=== PATIENT | male | born 2000 | race Caucasian/White ===

== ENCOUNTER 2022-03-04 16:06 | Emergency (ER) | payer OTHER, SELFPAY ==
[2022-03-04 16:35] VITALS: BP 127/67; PULSE 75; RESP 16; TEMP 36.7; O2SAT 100; BMI 21.2
--- NOTE | 2022-03-04 16:36 | EXP.UTC ---
Discharge Plan Disposition Patient Disposition: Home, Self-Care Condition: Good Referrals Follow up/Referrals: Jacky Ladd [Primary Care Provider] - See instructions Activity Restrictions/Add. Instructions Additional Instructions/Restrictions: Follow up with your primary care physicain. GO TO THE ER FOR ANY WORSENING SYMPTOMS OR CONCERNS Clinical Impressions Clinical Impression: Acute pain of left ear Instructions Patient Instructions: DI for Ear Pain-Adult Discharge ED Provider: Abbe Rico [facility] General Stated complaint: possible bug in ear Time Seen by Provider: 03/04/22 16:36 History of Present Illness Provider Complaint: He states that 2 days ago he felt an insect go in his left ear. He is unsure what kind of insect it was or how big it was. He states that since then he has tried hard to get it out by using q-tips and irrigation. He states that last night he began having ear pain. He denies any ear discharge, tinnitis, dizziness or any other symptoms. Related Data Allergies Allergy/AdvReac Type Severity Reaction Status Date / Time No Known Allergies Allergy Verified 03/04/22 16:39 [facility] Social History Smoking Status: Never smoker alcohol intake: never current occupational status: employed ROS Obtained: Yes All systems reviewed & no additional complaints except as documented Constitutional Constitutional: Reports system reviewed and no additional complaints, except as documented Eyes Eyes: Reports system reviewed and no additional complaints, except as documented Cardiovascular Cardiovascular: Reports system reviewed and no additional complaints, except as documented Respiratory Respiratory: Reports system reviewed and no additional complaints, except as documented Gastrointestinal Gastrointestingal: Reports system reviewed and no additional complaints, except as documented Musculoskeletal Musculoskeletal: Reports system reviewed and no additional complaints, except as documented Integumentary/Breasts Skin/Breast: Reports system reviewed and no additional complaints, except as documented Physical Exam General General appearance: alert and in no apparent distress Head Head exam: atraumatic, normocephalic and normal inspection Eye Eye exam: Present normal appearance, PERRL and EOMI ENT ENT exam: Present normal exam, normal oropharynx, mucous membranes moist, TM's normal bilaterally and normal external ear exam Expanded ENT Exam Comment: There was no insect or foreign body in either of his ears. The left ear canal is clear of wax and i was able to easily visualized the entire canal. Neck Neck exam: Present normal inspection, full ROM and trachea midline; Absent meningismus or lymphadenopathy Chest Chest inspection: Present normal inspection and symmetric chest wall rise; Absent tenderness Respiratory Respiratory exam: Present normal lung sounds bilaterally; Absent respiratory distress Cardiovascular Cardiovascular exam: Present regular rate and normal rhythm; Absent JVD Abdominal Exam Abdominal exam: Present soft and normal bowel sounds; Absent distention, tenderness or guarding Extremities Exam Extremities exam: Present normal inspection, full ROM and normal capillary refill; Absent calf tenderness Back Exam Back exam: Present normal inspection; Absent tenderness Neurological Exam Neurological exam: Present alert and oriented X3 Psychiatric Psychiatric exam: Present normal affect and normal mood Skin Skin exam: Present warm, dry, intact and normal color Lymphatic Lymphatic Findings: no adenopathy Medical Decision Making Medical Records Medical records reviewed: No I reviewed the patient's medical records. Pelon Inquiry Pt receiving controlled substance: No
[2022-03-04 17:00] VITALS: BP 127/67; PULSE 75; RESP 16; TEMP 36.7
== END 2022-03-04 17:01 | disposition home or self-care (01) ==
PROVIDERS: Emergency Provider Nurse Practitioner Family; PCP Pediatrics
DX: H92.02 Otalgia, left ear (principal)
CPT/HCPCS: 99212; G0463

== ENCOUNTER 2022-05-14 12:25 | Emergency (ER) | payer OTHER, SELFPAY ==
[2022-05-14 13:40] VITALS: BP 114/76; PULSE 89; RESP 18; TEMP 37.1; O2SAT 98; BMI 21.9
--- NOTE | 2022-05-14 13:59 | EXP.UTC ---
Discharge Plan Disposition Patient Disposition: Home, Self-Care Condition: Good Referrals Follow up/Referrals: Jacky Ladd [Primary Care Provider] - See instructions Activity Restrictions/Add. Instructions Additional Instructions/Restrictions: *Monitor Temp, Over the counter Motrin or Tylenol as directed/as needed Tylenol every 4 hours and Motrin every 6 hours (as long as your family doctor has told you that you can take it) for fever or pain. and straight to ER if unable to lower temp less than 101.0 after medication given *Warm salt water gargles may help to soothe the throat *Throat Lozenges? *Warm fluids like tea with honey may help to soothe the throat? *Sleep elevated *Humidifier/Vaporizer Your throat swab was sent for culture. Those results are typically sent to your primary care. Be sure to follow up in 2-3 days with your family doctor/primary care physician if no improvement so they can review those result and treat if necessary. If you don?t have a primary care doctor, I recommend you get one but in the mean time, you will have to return to a walk in clinic Follow up IMMEDIATELY for new or worsening symptoms or no Noticeable improvement over the next 48-72 hours. 911 for difficulty breathing or swallowing Clinical Impressions Clinical Impression: Sore throat (viral), Nasal congestion Stand Alone Forms Stand Alone Forms: Work/School Release Instructions Patient Instructions: Sore Throat, DI for Nasal Congestion Discharge ED Provider: Jolene Miller [facility] HPI General Stated complaint: Drainage, SHAIKH Mode of Arrival: Ambulatory Source of Information: Patient Limitations: No Limitations Time Seen by Provider: 05/14/22 13:59 Description of Symptoms (Recalled from Triage Doc. by RN): PT TO [facility] WITH NAUSEA, BODY ACHES, RUNNY NOSE AND HEADACHE SINCE LAST NIGHT HEENT Symptoms (Recalled from RN notes): Yes (HEADACHE, RUNNY NOSE) Resp Symptoms (Recalled from RN notes): No Skin Symptoms (Recalled from RN notes): No MS Symptoms (Recalled from RN notes): No Functional Status (Recalled from RN notes): WDL History of Present Illness Provider Complaint: Patient state that he started feeling bad last night States that he was having runny nose, scratchy throat, body aches, and headache States that he hasnt had a fever that he is aware of but wanted to get checked with everything going around Related Data Allergies Allergy/AdvReac Type Severity Reaction Status Date / Time No Known Allergies Allergy Verified 03/04/22 16:39 Worker's Comp Is this a Worker's Comp case?: No [facility] Social History (Updated 03/04/22 @ 16:51 by Abbe Rico APRN) Smoking Status: Never smoker alcohol intake: never current occupational status: employed Travel in the last 8 weeks: None ROS Obtained: Yes All systems reviewed & no additional complaints except as documented and Yes Systems reviewed as appropriate & no additional complaints except as documented Constitutional Constitutional: Reports system reviewed and no additional complaints, except as documented, Reports as per HPI, Reports body ache, Reports chills and Reports headache(s) ENT Ears, Nose, Mouth, and Throat: Reports system reviewed and no additional complaints, except as documented, Reports as per HPI, Reports headache(s), Reports nasal congestion, Reports nasal discharge and Reports sore throat Cardiovascular Cardiovascular: Reports system reviewed and no additional complaints, except as documented and Reports as per HPI Respiratory Respiratory: Reports system reviewed and no additional complaints, except as documented and Reports as per HPI Gastrointestinal Gastrointestingal: Reports system reviewed and no additional complaints, except as documented and as per HPI Neurologic Neurologic: Reports headache(s) Physical Exam General General appearance: alert and in no apparent distress Expanded ENT Exam Nose exam: Absent sinus tenderness Throa
[2022-05-14 14:13] LABS: UTC Influenza A Antigen Negative (Negative); UTC Influenza B Antigen Negative (Negative); UTC Strep Screen (Rapid) Negative (Negative)
[2022-05-14 14:32] VITALS: BP 119/76; PULSE 81; RESP 18; TEMP 37.1; O2SAT 99
== END 2022-05-14 14:33 | disposition home or self-care (01) ==
PROVIDERS: Emergency Provider Nurse Practitioner; PCP Pediatrics
DX: R09.89 Other specified symptoms and signs involving the circulatory and respiratory systems (principal); R51.9 Headache, unspecified
CPT/HCPCS: 87804; 87880; 99212; G0463

== ENCOUNTER 2023-06-21 08:13 | Emergency (ER) | payer OTHER, SELFPAY ==
--- NOTE | 2023-06-21 08:44 | EXP.UTC ---
Discharge Plan Disposition Patient Disposition: Left Against Medical Advice Condition: Fair Referrals Follow up/Referrals: Jacky Ladd [Primary Care Provider] - See instructions Clinical Impressions Clinical Impression: Pain in both testicles Discharge ED Provider: Jolene Miller [facility] HPI General Stated complaint: Pain in both testicles Time Seen by Provider: 06/21/23 08:45 History of Present Illness Provider Complaint: Patient states that he started having pain in both testicles that started on Sat that has come and gone States that this morning it was hurting again and feeling uncomfortable and achy like pain again so he came in Related Data Allergies Allergy/AdvReac Type Severity Reaction Status Date / Time No Known Allergies Allergy Verified 03/04/22 16:39 [facility] Disclaimer: The information contained in this section may have been updated after the patient was seen, as this information can be updated by other users. Social History (Updated 03/04/22 @ 16:51 by Abbe Rico APRN) Smoking Status: Never smoker alcohol intake: never current occupational status: employed Travel in the last 8 weeks: None ROS Obtained: Yes All systems reviewed & no additional complaints except as documented and Yes Systems reviewed as appropriate & no additional complaints except as documented Constitutional Constitutional: Reports system reviewed and no additional complaints, except as documented, Reports as per HPI, Denies body ache, Denies chills and Denies fever(s) ENT Ears, Nose, Mouth, and Throat: Reports system reviewed and no additional complaints, except as documented and Reports as per HPI Cardiovascular Cardiovascular: Reports system reviewed and no additional complaints, except as documented and Reports as per HPI Respiratory Respiratory: Reports system reviewed and no additional complaints, except as documented and Reports as per HPI Gastrointestinal Gastrointestingal: Reports system reviewed and no additional complaints, except as documented and as per HPI; Denies abdominal pain Genitourinary Male Genitourinary: Reports system reviewed and no additional complaints, except as documented, Reports as per HPI, Denies difficulty urinating, Denies hematuria, Denies scrotal swelling, Reports testicular pain, Denies urinary frequency, Denies urinary hesitancy and Denies urinary urgency Physical Exam General General appearance: alert and in no apparent distress Respiratory Respiratory exam: Present normal lung sounds bilaterally; Absent respiratory distress or wheezes Cardiovascular Cardiovascular exam: Present regular rate and normal heart sounds; Absent normal rhythm exam: Present other (Patient refused testicular exam ) Neurological Exam Neurological exam: Present alert and oriented X3 Medical Decision Making Pelon Inquiry Pt receiving controlled substance: No Pelon was queried for this patient: No Orders (Tests/Meds): ORDERS Category Date Time Status Testicular US [US Testicular] Stat Ultrasound 06/21/23 08:36 Ordered Medical Decision Narrative: Upon discussing collecting UA and doing a testicular exam patient became nervous and refused States that he wants to leave and go to his Family Doctor that is a male Patient educated on risks and seriousness associated with testicular torsion, epididymitis and std's that can cause pain in testicles and he still refuse exam said he would go to his PCP which is a male for exam and signed AMA and left
[2023-06-21 08:47] VITALS: BP 133/63; PULSE 78; RESP 18; TEMP 36.7; O2SAT 98
--- NOTE | 2023-06-21 08:55 | PC.NURSE ---
Pt came in for testicular pain. Jolene Miller APRN went into the room to do an examination and he did not want us to examine him. We explained that we had no males on staff that would be able to examine him. He decided that he wanted to be seen by his PCP that is a male. We had him sign an AMA form to leave. We expressed that he needed to be seen today. He stated that he would go straight and price PCP.
== END 2023-06-21 08:47 | disposition left against medical advice (07) ==
PROVIDERS: Emergency Provider Nurse Practitioner; PCP Pediatrics
DX: N50.811 Right testicular pain (principal); N50.812 Left testicular pain
CPT/HCPCS: 99212; 99213; G0463

== ENCOUNTER 2023-06-21 21:23 | Emergency (ER) | payer OTHER, SELFPAY ==
[2023-06-21 21:25] VITALS: BP 168/89; PULSE 78; RESP 17; TEMP 36.5; O2SAT 100; BMI 20.3
--- NOTE | 2023-06-21 21:45 | HMH.EDGENADL ---
Discharge Plan Disposition Patient Disposition: Home, Self-Care Chief Complaint: Back Pain/Injury Prescriptions Prescriptions: No Action No Known Home Medications Referrals Follow up/Referrals: Jacky Ladd [Primary Care Provider] - See instructions Activity Restrictions/Add. Instructions Additional Instructions/Restrictions: Call your family doctor to establish care for this visit to the emergency department and schedule follow-up within 48 hours to ensure improvement. If you have any worsening of your condition or any other concerning signs or symptoms, return to the emergency department or your primary care doctor for further evaluation. Take full dose of doxycycline to prevent worsening of symptoms and treat possible STD. Clinical Impressions Clinical Impression: Acute epididymitis Instructions Patient Instructions: DI for Low Back Pain Discharge ED Provider: Manan Clemens General Adult HPI General Chief complaint: Back Pain/Injury Stated complaint: back pain Time Seen by Provider: 06/21/23 21:27 Mode of Arrival: Ambulatory Source of Information: Patient and Relative Limitations: No Limitations Description of Symptoms (Recalled from ER Triage Doc. by RN): Patient reports he was seen for testicle pain at [facility] earlier today, an ultrasound was performed and they reported to him that he may have an infection and started him on Diclofenac and Doxycycline. Patient reports that he began having sharp lower back pain at approximately 7pm rated 9/10 on the numeric pain scale. Patient is concerned that it may be related to his testicular pain which is less but still there. History of Present Illness HPI narrative: 22-year-old male no relevant medical history presenting with testicular and back pain. Patient was seen today in the urgent care, declined physical exam, so went to outside hospital. At outside hospital, [facility], received ultrasound and urinalysis. They stated that I had an infection, and gave him 2 medications. Medications at bedside are diclofenac and doxycycline. He denies getting intramuscular injection or shot. Because he started having lower abdominal pain and bilateral flank pain, came to the emergency department again for further evaluation. Denies fevers or chills, testicular swelling, discharge, history of STDs, or any other concerns. Related Data Home Medications Medication Instructions Recorded Confirmed No Known Home Medications 06/21/23 06/21/23 Allergies Allergy/AdvReac Type Severity Reaction Status Date / Time No Known Allergies Allergy Verified 03/04/22 16:39 [facility] Disclaimer: The information contained in this section may have been updated after the patient was seen, as this information can be updated by other users. Social History (Updated 03/04/22 @ 16:51 by Abbe Rico APRN) Smoking Status: Current some day smoker alcohol intake: never current occupational status: employed Travel in the last 8 weeks: None ROS Obtained: Yes All systems reviewed & no additional complaints except as documented Physical Exam General General appearance: alert and in no apparent distress Head Head exam: atraumatic and normocephalic Eye Eye exam: Present normal appearance, PERRL and EOMI ENT ENT exam: Present mucous membranes moist Neck Neck exam: Present normal inspection, full ROM and trachea midline Respiratory Respiratory exam: Absent respiratory distress, wheezes, stridor, accessory muscle use or prolonged expiratory phase Cardiovascular Cardiovascular exam: Present normal rhythm Abdominal Exam Abdominal exam: Present soft and tenderness; Absent distention, guarding, rebound, rigidity or normal bowel sounds Abdominal tenderness: Present suprapubic and mild exam: Present deferred Extremities Exam Extremities exam: Absent edema Back Exam Back exam: Absent CVA tenderness (R) or CVA tenderness (L) Neurological Exam Neurological exam
[2023-06-21 22:13] VITALS: BP 141/76; PULSE 70; RESP 18; O2SAT 97
[2023-06-21 22:31] VITALS: BP 138/77; PULSE 69; RESP 20; O2SAT 95
--- NOTE | 2023-06-21 22:37 | PC.NURSE ---
pt up to br
[2023-06-21 22:47] LABS: Microscopic, Urine URINE MICROSCOPIC (MICROSCOPIC)
[2023-06-21 22:51] LABS: Appearance,Urine CLEAR (Clear); Bilirubin,Urine Negative (Negative); Blood, Urine Negative (Negative); Color,Urine YELLOW (Yellow); Glucose,Urine (UA) Negative (Negative); Ketones,Urine Negative (Negative); Leukocyte Esterase,Urine Negative (Negative); Nitrate,Urine Negative (Negative); Protein,Urine Negative (Negative); Urobilinogen,Urine 0.2 EU/dl (0.2)
[2023-06-21 23:11] LABS: Amorphous Sediment,Urine Trace /lpf; Bacteria,Urine Trace /lpf; Squamous Epithelial Cell,Urine Occasional #/hpf (0-5)
[2023-06-21 23:13] VITALS: BP 132/70; PULSE 73; RESP 19; TEMP 36.8; O2SAT 98
[2023-06-25 00:04] LABS: Neisseria gonorrhoeae, NAA Negative (Negative)
[2023-06-25 23:34] LABS: Trichomonas Vaginalis, NAA Negative
== END 2023-06-21 23:14 | disposition home or self-care (01) ==
PROVIDERS: Emergency Provider Emergency Medicine; PCP Pediatrics
DX: N45.1 Epididymitis (principal); M54.50 Low back pain, unspecified; F17.200 Nicotine dependence, unspecified, uncomplicated
CPT/HCPCS: 81001; 87491; 87591; 87661; 96372; 99285; J0696

== ENCOUNTER 2024-04-07 22:32 | Emergency (ER) | payer BC, SELFPAY ==
[2024-04-07 22:33] VITALS: BP 130/84; PULSE 96; RESP 16; TEMP 36.7; O2SAT 96; BMI 22.8
--- NOTE | 2024-04-07 22:34 | HMH.EDGENADL ---
Discharge Plan Disposition Patient Disposition: Home, Self-Care Condition: Good Prescriptions Prescriptions: New methocarbamol 500 mg tablet 500 mg PO Q6H PRN (Reason: pain) Qty: 30 0RF lidocaine 5 % adhesive patch,medicated 1 patch topical DAILY PRN (Reason: pain) Qty: 30 0RF Rx Instructions: leave on most painful area for up to 12 hrs Referrals Follow up/Referrals: Jacky Ladd [Primary Care Provider] - See instructions Activity Restrictions/Add. Instructions Additional Instructions/Restrictions: Please take Tylenol and ibuprofen and Robaxin as needed for pain. Please use lidocaine patches as needed. Follow-up with your PCP for no improvement or worsening symptoms or return to the ER as needed. Clinical Impressions Clinical Impression: Low back pain Qualifiers: Chronicity: acute Back pain laterality: bilateral Sciatica presence: without sciatica Qualified Code(s): M54.50 - Low back pain, unspecified Instructions Patient Instructions: DI for Low Back Pain Print Language Print Language: Urdu Discharge ED Provider: Ceasar Fan General Adult HPI <MAYELIN Domingo - Last Filed: 04/07/24 22:43> General Chief complaint: Back Pain/Injury Stated complaint: lower back pain Time Seen by Provider: 04/07/24 22:33 History of Present Illness HPI narrative: Patient presents for evaluation of lumbar back pain. Patient reports a weeklong history of bilateral and midline low back pain. He denies any known trauma. 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 He denies any numbness tingling in his lower extremities no saddle anesthesia no problems with incontinence of urine or stool. Related Data Previous Rx's ?Medication ?Instructions ?Recorded lidocaine 5 % topical patch 1 patch topical DAILY PRN pain #30 04/07/24 ea methocarbamol 500 mg tablet 500 mg PO Q6H PRN pain #30 tabs 04/07/24 Allergies Allergy/AdvReac Type Severity Reaction Status Date / Time No Known Allergies Allergy Verified 03/04/22 16:39 PFS <MAYELIN Domingo - Last Filed: 04/07/24 22:43> REPLACED BY [facility] Disclaimer: The information contained in this section may have been updated after the patient was seen, as this information can be updated by other users. Social History (Updated 03/04/22 @ 16:51 by Abbe Rico APRN) Smoking Status: Current every day smoker alcohol intake: never current occupational status: employed Travel in the last 8 weeks: None <MAYELIN Domingo - Last Filed: 04/07/24 22:43> ROS Obtained: Yes Systems reviewed as appropriate & no additional complaints except as documented Physical Exam <MAYELIN Domingo - Last Filed: 04/07/24 22:43> General General appearance: alert and in no apparent distress Respiratory Respiratory exam: Present normal lung sounds bilaterally Cardiovascular Cardiovascular exam: Present regular rate Neurological Exam Neurological exam: Present alert, oriented X3, normal gait and reflexes normal; Absent motor sensory deficit Medical Decision Making <MAYELIN Domingo - Last Filed: 04/07/24 22:43> Medical Records Screening: Per USPSTF and CDC recommendations, given the prevalence of disease in our region, it is our hospital?s policy to screen for HIV and viral Hepatitis for all patients aged 18 and over and those with ongoing risk factors. [place] Inquiry Pt receiving controlled substance: No Vital Signs: 04/07/24 22:33 04/07/24 23:00 04/07/24 23:30 Temperature 98.1 F Temperature Source Oral Pulse Rate 63 51 L Pulse Rate [Right Radial] 96 H Respiratory Rate 16 Blood Pressure 130/75 112/68 Blood Pressure [Right Arm] 130/84 Blood Pressure Mean [Right Arm] 99 Blood Pressure Source Blood Pressure Source [Right Arm] Automatic Cuff Blood Pressure Position Blood Pressure Position [Right Arm] Supine 02 Sat by Pulse Oximetry 96 98 97 Oxygen Delivery Method Room Air 04/07/24 23:54 Temperature 97.7 F Temperature Source Oral Pulse Rate 67 Pulse Rate [Right Radial] Respiratory Rate 16 Blood Pressure 112/68 Blood Pressure [Right Arm] Blood Pressure Mean [Right Arm] Blood Pressure Source Automatic Cuff Blood Pressure Source [Right Arm] Blood Pressure Position Sitting Blood Pressure Position [Right Arm] 02 Sat by Pulse Oximetry Oxygen Delivery Method Orders (Tests/Meds): ED MEDICATIONS Discontinued Medications Generic Name Dose Route Start Last Admin Trade Name Freq PRN Reason Stop Dose Admin Acetaminophen 1,000 mg 04/07/24 22:37 04/07/24 22:49 Acetaminophen 500mg Tab PO 04/07/24 22:38 1,000 mg ONCE ONE Administration Dexamethasone Sodium Phosphate 8 mg 04/07/24 22:45 04/07/24 22:48 Dexamethasone 4mg/Ml 5ml Mdv IM 05/07/24 22:44 8 mg Q6H CONSTANTINO Administration Ibuprofen 800 mg 04/07/24 22:37 04/07/24 22:48 Ibuprofen 400 Mg Tablet PO 04/07/24 22:38 800 mg ONCE ONE Administration Lidocaine 1 each 04/07/24 22:37 04/07/24 22:49 Lidocaine 5% Transdermal Patch TP 04/07/24 22:38 1 each ONCE ONE Administration Methocarbamol 500 mg 04/07/24 22:37 04/07/24 22:49 Methocarbamol 500mg Tablet PO 04/07/24 22:38 500 mg ONCE ONE Administration ORDERS Category Date Time Status Lumbar spine XR 2-3 views [XR lumbar spine 2-3V] Stat Exams 04/07/24 22:37 Completed Medical Decision Narrative: In summary patient is a 23-year-old male who presents to the emergency department for evaluation of nontraumatic low back pain. Patient is hemodynamically stable upon arrival, afebrile. Physical exam shows no antalgic gait no focal neurologic deficits no paresthesia or neuropathy and patient is neurovascularly intact distally bilateral lower extremities. He has no saddle anesthesia. Palpation of the low back reveals no tenderness on palpation or bony deformity. There is no ecchymosis contusions or abrasions noted.. Differential diagnosis includes muscle strain versus bony spine dysfunction [facility]eter[facility]. Initial workup will be conducted with plain film x-rays. Initial interventions include Lidoderm patch, acetaminophen, ibuprofen, IM Decadron. Initial workup ordered and pending at the time of handoff to Dr. Fan at 2300 hrs. <Ceasar Fan MD - Last Filed: 04/07/24 23:57> Vital Signs: 04/07/24 22:33 04/07/24 23:00 04/07/24 23:30 Temperature 98.1 F Temperature Source Oral Pulse Rate 63 51 L Pulse Rate [Right Radial] 96 H Respiratory Rate 16 Blood Pressure 130/75 112/68 Blood Pressure [Right Arm] 130/84 Blood Pressure Mean [Right Arm] 99 Blood Pressure Source Blood Pressure Source [Right Arm] Automatic Cuff Blood Pressure Position Blood Pressure Position [Right Arm] Supine 02 Sat by Pulse Oximetry 96 98 97 Oxygen Delivery Method Room Air 04/07/24 23:54 Temperature 97.7 F Temperature Source Oral Pulse Rate 67 Pulse Rate [Right Radial] Respiratory Rate 16 Blood Pressure 112/68 Blood Pressure [Right Arm] Blood Pressure Mean [Right Arm] Blood Pressure Source Automatic Cuff Blood Pressure Source [Right Arm] Blood Pressure Position Sitting Blood Pressure Position [Right Arm] 02 Sat by Pulse Oximetry Oxygen Delivery Method Orders (Tests/Meds): ED MEDICATIONS Discontinued Medications Generic Name Dose Route Start Last Admin Trade Name Giulianoq PRN Reason Stop Dose Admin Acetaminophen 1,000 mg 04/07/24 22:37 04/07/24 22:49 Acetaminophen 500mg Tab PO 04/07/24 22:38 1,000 mg ONCE ONE Administration Dexamethasone Sodium Phosphate 8 mg 04/07/24 22:45 04/07/24 22:48 Dexamethasone 4mg/Ml 5ml Mdv IM 05/07/24 22:44 8 mg Q6H CONSTANTINO Administration Ibuprofen 800 mg 04/07/24 22:37 04/07/24 22:48 Ibuprofen 400 Mg Tablet PO 04/07/24 22:38 800 mg ONCE ONE Administration Lidocaine 1 each 04/07/24 22:37 04/07/24 22:49 Lidocaine 5% Transdermal Patch TP 04/07/24 22:38 1 each ONCE ONE Administration Methocarbamol 500 mg 04/07/24 22:37 04/07/24 22:49 Methocarbamol 500mg Tablet PO 04/07/24 22:38 500 mg ONCE ONE Administration ORDERS Category Date Time Status Lumbar spine XR 2-3 views [XR lumbar spine 2-3V] Stat Exams 04/07/24 22:37 Completed Medical Decision Narrative: In summary patient is a 23-year-old male who presents to the emergency department for evaluation of nontraumatic low back pain. Patient is hemodynamically stable upon arrival, afebrile. Physical exam shows no antalgic gait no focal neurologic deficits no paresthesia or neuropathy and patient is neurovascularly intact distally bilateral lower extremities. He has no saddle anesthesia. Palpation of the low back reveals no tenderness on palpation or bony deformity. There is no ecchymosis contusions or abrasions noted.. Differential diagnosis includes muscle strain versus bony spine dysfunction [facility]eter[employer]. Initial workup will be conducted with plain film x-rays. Initial interventions include Lidoderm patch, acetaminophen, ibuprofen, IM Decadron. Initial workup ordered and pending at the time of handoff to Dr. Fan at 2300 hrs. Mita PAL: I assumed care of the patient at the time of handoff from the prior provider. On reassessment patient reports some symptomatic improvement. No evidence of spinal cord pathology on repeat exam. Interactive discussion with patient regarding his presentation, symptomatic care and return precautions. He was discharged with prescription for Robaxin and lidocaine patches. I was consulted by the THOMAS, and we discussed the complexity of the problems being addressed. I approved the treatment and management plan for this patient?s care in the Emergency Department, thus performing a substantive portion of the medical decision making. Ceasar Fan MD Critical Care <MAYELIN Domingo - Last Filed: 04/07/24 22:43> Critical Care Time Critical Care Time: No
--- NOTE | 2024-04-07 22:37 | XR_ITS ---
PROCEDURE INFORMATION: Exam: XR Lumbosacral Spine Exam date and time: 04/07/2024 10:40 PM Age: 23 years old Clinical indication: Low back pain; Additional info: Lumbago TECHNIQUE: Imaging protocol: Radiologic exam of the lumbosacral spine. Views: 2 or 3 views. COMPARISON: No relevant prior studies available. FINDINGS: Bones/joints: Normal. No acute fracture. Normal alignment. Soft tissues: Unremarkable. IMPRESSION: No Visible acute abnormality.
--- NOTE | 2024-04-07 22:45 | PC.NURSE ---
Verified medications with [facility]
[2024-04-07] MEDS: IBUPROFEN 400 MG TABLET 800 MG PO (22:48)
[2024-04-07] MEDS: DEXAMETHASONE 4MG/ML 5ML MDV 8 MG IM (22:48)
[2024-04-07] MEDS: METHOCARBAMOL 500MG TABLET 500 MG PO (22:49)
[2024-04-07] MEDS: ACETAMINOPHEN 500MG TAB 1000 MG PO (22:49)
[2024-04-07] MEDS: LIDOCAINE 5% TRANSDERMAL PATCH 1 EACH TP (22:49)
[2024-04-07 23:00] VITALS: BP 130/75; PULSE 63; O2SAT 98
[2024-04-07 23:30] VITALS: BP 112/68; PULSE 51; O2SAT 97
[2024-04-07 23:54] VITALS: BP 112/68; PULSE 67; RESP 16; TEMP 36.5; O2SAT 97
== END 2024-04-07 23:59 | disposition home or self-care (01) ==
PROVIDERS: Emergency Provider Emergency Medicine; PCP Pediatrics
DX: M54.50 Low back pain, unspecified (principal)
CPT/HCPCS: 72100; 96372; 99283; J1100